=== PATIENT | female | born 1980 | race Caucasian/White ===

== ENCOUNTER → 2017-10-11 | Outpatient (CLI) | payer BC, OTHER | END | disposition home or self-care (01) | LOC: PETCFH 09:14 | PROVIDERS: ATTEND Internal Medicine Gastroenterology | DX: K30 Functional dyspepsia (principal); K62.5 Hemorrhage of anus and rectum; K21.9 Gastro-esophageal reflux disease without esophagitis; E73.9 Lactose intolerance, unspecified; F41.9 Anxiety disorder, unspecified | CPT/HCPCS: 78264; A9541 ==